=== PATIENT | female | born 1960 | race Caucasian/White ===

== ENCOUNTER 2019-06-21 06:00 | Outpatient (RCR) | payer BC, SELFPAY | END 2019-07-20 23:59 | disposition home or self-care (01) | LOC: SPT 06:00 | PROVIDERS: Family Provider Nurse Practitioner Family; PCP Nurse Practitioner Family; Visit Provider Podiatrist Foot & Ankle Surgery | DX: M77.42 Metatarsalgia, left foot (principal) | CPT/HCPCS: 97033; 97161 ==

== ENCOUNTER 2019-07-21 06:00 | Outpatient (RCR) | payer BC, SELFPAY | END 2019-08-18 23:59 | disposition home or self-care (01) | LOC: SPT 06:00 | PROVIDERS: Family Provider Nurse Practitioner Family; PCP Nurse Practitioner Family; Visit Provider Podiatrist Foot & Ankle Surgery | DX: M79.671 Pain in right foot (principal); R26.89 Other abnormalities of gait and mobility | CPT/HCPCS: 97033; 97140 ==

== ENCOUNTER 2019-08-31 16:26 | Outpatient (CLI) | payer BC, SELFPAY ==
--- NOTE | 2019-08-31 16:35 | XRR_ITS ---
PROCEDURE INFORMATION: Exam: XR Thoracic Spine, 3 Views Exam date and time: 08/31/2019 4:57 PM Age: 58 years old Clinical indication: Pain in thoracic spine; Additional info: Right side thoracic pain TECHNIQUE: Imaging protocol: XR of the thoracic spine, 3 views. COMPARISON: No relevant prior studies available. FINDINGS: Vertebrae: There are clys-yl-[id number] diffuse degenerative changes. No acute fracture or subluxation. Soft tissues: Normal. XR/XR thoracic spine 3V* [id number] IMPRESSION: 1. There are dyaz-ri-yklfcnim diffuse degenerative changes. 2. No acute bony abnormality.
--- NOTE | 2019-08-31 16:35 | XRR_ITS ---
PROCEDURE INFORMATION: Exam: XR Chest, 2 Views Exam date and time: 08/31/2019 4:57 PM Age: 58 years old Clinical indication: Shortness of breath; Right-sided chest pain; Additional info: Right upper chest pain TECHNIQUE: Imaging protocol: XR of the chest Views: 2 views. COMPARISON: No relevant prior studies available. FINDINGS: Lungs: Unremarkable. No consolidation. Pleural space: Unremarkable. No pleural effusion. No pneumothorax. Heart/Mediastinum: Unremarkable. No cardiomegaly. Bones/joints: Unremarkable. XR/XR chest 2V* [id number] IMPRESSION: No acute findings.
--- NOTE | 2019-08-31 16:35 | XRR_ITS ---
PROCEDURE INFORMATION: Exam: XR Lumbosacral Spine, 2 or 3 Views Exam date and time: 08/31/2019 4:57 PM Age: 58 years old Clinical indication: Low back pain TECHNIQUE: Imaging protocol: XR of the lumbosacral spine, 2 or 3 views. COMPARISON: No relevant prior studies available. FINDINGS: Vertebrae: There are diffuse severe facet degenerative changes. No instability with flexion or extension. No acute fracture. Normal alignment. Disc space narrowing and mild endplate degenerative changes are noted throughout the visualized lumbar spine. Soft tissues: Normal. XR/XR lumbar spine f/e only [id number] IMPRESSION: Degenerative changes. No instability.
[2019-09-01 10:28] LABS: Basophils % 0.3 %; Eosinophils # 0.1 10^3/uL (0.0-0.8); Eosinophils % 1.9 %; Hematocrit 41.6 % (37.0-47.0); Lymphocytes # 2.6 10^3/uL (0.8-4.8); Lymphocytes % 34.6 %; Mean Corpuscular HGB Conc 33.7 g/dL (30.0-36.0); Mean Corpuscular Hemoglobin 29.2 pg (28.0-34.0); Mean Corpuscular Volume 86.8 fL (81-99); Mean Platelet Volume 9.6 fL (7.4-10.4); Monocytes # 0.5 10^3/uL (0.2-0.9); Monocytes % 6.4 %; Neutrophils # 4.3 10^3/uL (1.8-7.7); Neutrophils % 56.5 %; Nucleated Red Blood Cells % 0 %; Platelet Count 329 10^3/cmm (130-400); Red Blood Count 4.79 10^6/uL (4.1-5.3); Red Cell Distribution Width 12.1 % (12.1-15.1); White Blood Count 7.5 10^3/uL (4.0-10.0)
[2019-09-01 10:40] LABS: Bilirubin Urine Neg (NEGATIVE); Blood Urine Neg (Negative); Glucose Urine UA Norm (Normal); Ketones Urine Negative (Negative); Leukocyte Esterase Urine Trace (Negative); Nitrate Urine Negative (Negative); Protein Urine Neg (Negative); Specific Gravity, Urine 1.025 (1.005-1.030); Urine Appearance Hazy (CLEAR); Urine Color Yellow (Yellow); Urobilinogen Urine Norm (Negative); pH Urine 5 (5-7)
[2019-09-01 10:43] LABS: Squamous Epithelial Cell Urine 15-25 (0-5); WBC Urine 15-25 /hpf (0-5)
[2019-09-01 10:44] LABS: Add Urine Culture? No; Bacteria Urine 2+; Estmated Average Glucose 117; Hemoglobin A1C 5.7 % (4.0-6.0); Mucus Urine 1+
[2019-09-01 10:52] LABS: Alanine Aminotransferase 17 U/L (0-33); Albumin Level 3.7 g/dL (3.5-5.2); Alkaline Phosphatase 77 IU/L (35-105); Anion Gap 12.3 (5-19); Aspartate Amino Transferase 20 U/L (0-32); Blood Urea Nitrogen 13 mg/dL (6-20); Calcium 8.9 mg/dL (8.5-10.5); Carbon Dioxide 27 mmol/L (22-29); Chloride 104 mmol/L (98-107); Cholesterol 168 mg/dL (0-200); Globulin 3.5 g/dL (1.3-4.6); Glomerular Filtration Rate 73.9 mL/min (90-130); Glucose 115 mg/dL (65-115); HDL Cholesterol 58 mg/dL (60-100); LDL Cholesterol Calculated 77 mg/dL (50-129); LDL HDL Ratio 1.33 RATIO (0.00-3.22); Osmolality Calculated 285 mOsm/kg (285-295); Potassium 4.3 mmol/L (3.5-5.1); Sodium 139 mmol/L (136-145); Total Bilirubin 0.5 mg/dL (0.15-1.2); Total Protein 7.2 g/dL (6.6-8.7); Triglycerides 164 mg/dL (0-150)
[2019-09-01 10:53] LABS: Thyroid Stimulating Hormone 2.11 uIU/mL (0.27-4.20)
[2019-09-01 11:00] LABS: 25 Hydroxy Vitamin D 9 ng/mL (30-100)
== END 2019-08-31 16:27 | disposition home or self-care (01) ==
LOC: LAB 16:30
PROVIDERS: Family Provider Nurse Practitioner Family; PCP Nurse Practitioner Family; Visit Provider Nurse Practitioner Family
DX: M47.894 Other spondylosis, thoracic region (principal); M47.896 Other spondylosis, lumbar region; M54.6 Pain in thoracic spine; R07.89 Other chest pain; R06.02 Shortness of breath; E55.9 Vitamin D deficiency, unspecified; E78.2 Mixed hyperlipidemia; R53.83 Other fatigue; I10 Essential (primary) hypertension; Z79.899 Other long term (current) drug therapy
CPT/HCPCS: 71046; 72072; 72120

== ENCOUNTER 2019-09-01 07:00 | Outpatient (CLI) | payer BC, SELFPAY | END 2019-09-01 07:01 | disposition home or self-care (01) | LOC: LAB 09-12 06:35 | PROVIDERS: Family Provider Nurse Practitioner Family; PCP Nurse Practitioner Family; Visit Provider Nurse Practitioner Family | DX: E55.9 Vitamin D deficiency, unspecified (principal); I10 Essential (primary) hypertension; M25.50 Pain in unspecified joint; R53.83 Other fatigue; M54.9 Dorsalgia, unspecified; E78.2 Mixed hyperlipidemia; Z79.899 Other long term (current) drug therapy | CPT/HCPCS: 80053; 80061; 81001; 82306; 83036; 84443; 85025 ==

== ENCOUNTER → 2019-09-03 11:51 | Outpatient (BNVA) | payer BC, SELFPAY | PROVIDERS: Family Provider Nurse Practitioner Family; PCP Nurse Practitioner Family; Visit Provider Nurse Practitioner Family | DX: M25.50 Pain in unspecified joint (principal); M54.9 Dorsalgia, unspecified; M51.36 Other intervertebral disc degeneration, lumbar region; M51.34 Other intervertebral disc degeneration, thoracic region; M54.5 Low back pain; G89.29 Other chronic pain | CPT/HCPCS: 85651; 86140; 86431 ==

== ENCOUNTER 2019-09-10 16:08 | Outpatient (CLI) | payer BC, SELFPAY | END 2019-09-10 16:09 | disposition home or self-care (01) | LOC: SPT 16:09 | PROVIDERS: Family Provider Nurse Practitioner Family; PCP Nurse Practitioner Family; Visit Provider Podiatrist Foot & Ankle Surgery | DX: M65.28 Calcific tendinitis, other site (principal) | CPT/HCPCS: L3030 ==

== ENCOUNTER → 2019-10-18 10:57 | Outpatient (BNVA) | payer BC, SELFPAY | PROVIDERS: Family Provider Nurse Practitioner Family; PCP Nurse Practitioner Family; Visit Provider Nurse Practitioner Family | DX: R60.9 Edema, unspecified (principal); M25.572 Pain in left ankle and joints of left foot | CPT/HCPCS: 73610 ==

== ENCOUNTER → 2019-10-19 00:01 | Outpatient (BNVA) | payer BC, SELFPAY | PROVIDERS: Family Provider Nurse Practitioner Family; PCP Nurse Practitioner Family; Visit Provider Nurse Practitioner Family | DX: R60.9 Edema, unspecified (principal); M25.579 Pain in unspecified ankle and joints of unspecified foot; I10 Essential (primary) hypertension; D64.9 Anemia, unspecified; M25.50 Pain in unspecified joint | CPT/HCPCS: 80053; 82607; 82746; 83540; 84550; 85025 ==

== ENCOUNTER → 2019-10-23 09:35 | Outpatient (BNVA) | payer BC, SELFPAY | PROVIDERS: Family Provider Nurse Practitioner Family; PCP Nurse Practitioner Family; Visit Provider Nurse Practitioner Family | DX: M25.579 Pain in unspecified ankle and joints of unspecified foot (principal) | CPT/HCPCS: 73610 ==

== ENCOUNTER 2019-10-25 06:00 | Outpatient (RCR) | payer BC, SELFPAY | END 2019-11-18 23:59 | disposition home or self-care (01) | LOC: WPT 06:00 | PROVIDERS: PCP Nurse Practitioner Family; Referring Provider Nurse Practitioner Family; Visit Provider Nurse Practitioner Family | DX: M65.28 Calcific tendinitis, other site (principal) | CPT/HCPCS: 97110; 97112; 97162; G0283 ==

== ENCOUNTER → 2019-12-14 11:32 | Outpatient (BNVA) | payer BC, SELFPAY | PROVIDERS: PCP Nurse Practitioner Family; Visit Provider Nurse Practitioner Family | DX: M10.9 Gout, unspecified (principal); D64.9 Anemia, unspecified; I10 Essential (primary) hypertension; M54.5 Low back pain; G89.29 Other chronic pain | CPT/HCPCS: 36415; 80053; 82607; 82746; 83921; 84550; 85025 ==

== ENCOUNTER → 2020-04-01 11:10 | Outpatient (BNVA) | payer BC, SELFPAY | PROVIDERS: PCP Nurse Practitioner Family; Visit Provider Nurse Practitioner Family | DX: M10.9 Gout, unspecified (principal); I10 Essential (primary) hypertension; E78.2 Mixed hyperlipidemia; E55.9 Vitamin D deficiency, unspecified; G62.9 Polyneuropathy, unspecified | CPT/HCPCS: 80053; 80061; 81003; 82306; 83036; 83735; 84100; 84443; 84550; 85025 ==

== ENCOUNTER → 2020-08-14 10:34 | Outpatient (BNVA) | payer OTHER, SELFPAY | PROVIDERS: PCP Nurse Practitioner Family; Visit Provider Nurse Practitioner Family | DX: S86.911A Strain of unspecified muscle(s) and tendon(s) at lower leg level, right leg, initial encounter (principal); M51.36 Other intervertebral disc degeneration, lumbar region; E55.9 Vitamin D deficiency, unspecified; M10.9 Gout, unspecified; D64.9 Anemia, unspecified; X58.XXXA Exposure to other specified factors, initial encounter | CPT/HCPCS: 73562; 80053; 81003; 82306; 82607; 83550; 84550; 85025; 85651; 86140; 87086 ==

== ENCOUNTER → 2020-08-29 12:06 | Outpatient (BNVA) | payer OTHER, SELFPAY | PROVIDERS: PCP Nurse Practitioner Family; Visit Provider Nurse Practitioner Family | DX: N39.0 Urinary tract infection, site not specified (principal) | CPT/HCPCS: 81003; 87077; 87086; 87184 ==

== ENCOUNTER → 2020-09-09 13:29 | Outpatient (BNVA) | payer OTHER, SELFPAY | PROVIDERS: PCP Nurse Practitioner Family; Visit Provider Nurse Practitioner Family | DX: N39.0 Urinary tract infection, site not specified (principal) | CPT/HCPCS: 81003 ==

== ENCOUNTER → 2020-09-10 10:21 | Outpatient (BNVA) | payer OTHER, SELFPAY | PROVIDERS: PCP Nurse Practitioner Family; Referring Provider Nurse Practitioner Family; Visit Provider Specialist | DX: M25.569 Pain in unspecified knee (principal) | CPT/HCPCS: 73560; 73565 ==

== ENCOUNTER 2020-09-10 14:20 | Outpatient (CLI) | payer OTHER, SELFPAY | END 2020-09-10 14:21 | disposition home or self-care (01) | LOC: SPT 14:21 | PROVIDERS: PCP Nurse Practitioner Family; Visit Provider Specialist | DX: M25.561 Pain in right knee (principal); Z46.89 Encounter for fitting and adjustment of other specified devices | CPT/HCPCS: 97760; L1812 ==

== ENCOUNTER → 2021-12-15 10:37 | Outpatient (BNVA) | payer BC, MEDICARE, SELFPAY | PROVIDERS: PCP Nurse Practitioner Family; Visit Provider Nurse Practitioner | DX: I10 Essential (primary) hypertension (principal); E55.9 Vitamin D deficiency, unspecified; M25.50 Pain in unspecified joint; M17.10 Unilateral primary osteoarthritis, unspecified knee | CPT/HCPCS: 80053; 80061; 82306; 84443; 85025 ==

== ENCOUNTER 2023-05-05 10:08 | Outpatient (CLI) | payer MEDICARE, SELFPAY ==
--- NOTE | 2023-05-05 10:30 | MM_ITS ---
WS: [id number] BILATERAL SCREENING DIGITAL TOMOSYNTHESIS MAMMOGRAM WITH CAD HISTORY: Z12.39 - Encounter for other screening for malignant neop... COMPARISON: None available. Bilateral CC and MLO views with tomosynthesis and synthetic mammography submitted. Computer aided det ection analyzed. Breast composition: The breasts are heterogeneously dense, which may obscure small masses. No suspici ous masses, microcalcifications or architectural distortion. IMPRESSION: MM/[place] [id number] BI-RADS: 2-Benign FOLLOW UP: 1 Year Follow-up
== END 2023-05-05 10:09 | disposition home or self-care (01) ==
LOC: MOBLMAM 10:12
PROVIDERS: PCP Nurse Practitioner Family; Visit Provider Nurse Practitioner Family
DX: Z12.31 Encounter for screening mammogram for malignant neoplasm of breast (principal)
CPT/HCPCS: 77063; 77067

== ENCOUNTER → 2023-08-08 10:18 | Outpatient (BNVA) | payer MEDICARE, SELFPAY | PROVIDERS: PCP Nurse Practitioner Family; Visit Provider Nurse Practitioner Family | DX: I10 Essential (primary) hypertension (principal); M79.7 Fibromyalgia | CPT/HCPCS: 80053; 84443; 85025; 86140 ==

== ENCOUNTER → 2023-11-22 10:03 | Outpatient (BNVA) | payer MEDICARE, SELFPAY | PROVIDERS: PCP Nurse Practitioner Family; Visit Provider Nurse Practitioner Family | DX: B02.9 Zoster without complications (principal); L03.90 Cellulitis, unspecified; E55.9 Vitamin D deficiency, unspecified; I10 Essential (primary) hypertension; E78.2 Mixed hyperlipidemia; Z79.899 Other long term (current) drug therapy; M79.7 Fibromyalgia; G62.9 Polyneuropathy, unspecified | CPT/HCPCS: 80053; 82306; 83036; 85025 ==

== ENCOUNTER → 2024-03-15 08:51 | Outpatient (BNVA) | payer MEDICARE, SELFPAY | PROVIDERS: PCP Nurse Practitioner Family; Visit Provider Nurse Practitioner Family | DX: I10 Essential (primary) hypertension (principal); E55.9 Vitamin D deficiency, unspecified; E78.2 Mixed hyperlipidemia; R73.09 Other abnormal glucose; E11.9 Type 2 diabetes mellitus without complications; M25.872 Other specified joint disorders, left ankle and foot; M92.60 Juvenile osteochondrosis of tarsus, unspecified ankle; M25.871 Other specified joint disorders, right ankle and foot; M67.971 Unspecified disorder of synovium and tendon, right ankle and foot; M92.62 Juvenile osteochondrosis of tarsus, left ankle; M77.8 Other enthesopathies, not elsewhere classified | CPT/HCPCS: 73610; 73630; 80053; 80061; 81003; 82306; 83036; 85025; 87086 ==

== ENCOUNTER 2024-09-19 13:46 | Outpatient (CLI) | payer MEDICARE, SELFPAY | END 2024-09-19 13:47 | disposition home or self-care (01) | LOC: SPT 13:47 | PROVIDERS: PCP Nurse Practitioner Family; Visit Provider Podiatrist Foot & Ankle Surgery | DX: Z46.89 Encounter for fitting and adjustment of other specified devices (principal); M72.2 Plantar fascial fibromatosis; M77.51 Other enthesopathy of right foot and ankle; M77.52 Other enthesopathy of left foot and ankle | CPT/HCPCS: L4397 ==

== ENCOUNTER 2024-10-05 09:07 | Outpatient (RCR) | payer MEDICARE, SELFPAY | END 2024-10-17 23:59 | disposition home or self-care (01) | LOC: SPT 09:07 | PROVIDERS: PCP Nurse Practitioner Family; Visit Provider Podiatrist Foot & Ankle Surgery | DX: M76.62 Achilles tendinitis, left leg (principal); M76.61 Achilles tendinitis, right leg | CPT/HCPCS: 97161 ==

== ENCOUNTER 2024-10-18 05:00 | Outpatient (RCR) | payer MEDICARE, SELFPAY | END 2024-11-13 09:58 | disposition home or self-care (01) | LOC: SPT 05:00 | PROVIDERS: PCP Nurse Practitioner Family; Visit Provider Podiatrist Foot & Ankle Surgery | DX: M76.62 Achilles tendinitis, left leg (principal); M76.61 Achilles tendinitis, right leg | CPT/HCPCS: 97033; 97110; 97140 ==

== ENCOUNTER 2024-11-01 09:50 | Outpatient (CLI) | payer MEDICARE, SELFPAY | END 2024-11-01 09:51 | disposition home or self-care (01) | LOC: SPT 09:51 | PROVIDERS: PCP Nurse Practitioner Family; Visit Provider Podiatrist Foot & Ankle Surgery | DX: Z46.89 Encounter for fitting and adjustment of other specified devices (principal); M72.2 Plantar fascial fibromatosis | CPT/HCPCS: L4361 ==

== ENCOUNTER → 2024-12-18 08:00 | Outpatient (BNVA) | payer MEDICARE, SELFPAY | PROVIDERS: PCP Nurse Practitioner Family; Visit Provider Podiatrist Foot & Ankle Surgery | DX: M76.61 Achilles tendinitis, right leg (principal); M76.62 Achilles tendinitis, left leg; M72.2 Plantar fascial fibromatosis; M77.51 Other enthesopathy of right foot and ankle; M77.52 Other enthesopathy of left foot and ankle | CPT/HCPCS: 99214 ==

== ENCOUNTER → 2024-12-24 10:00 | Outpatient (BNVA) | payer MEDICARE, SELFPAY | PROVIDERS: PCP Nurse Practitioner Family; Visit Provider Nurse Practitioner Family | DX: E11.9 Type 2 diabetes mellitus without complications (principal); E55.9 Vitamin D deficiency, unspecified; M25.50 Pain in unspecified joint; M10.9 Gout, unspecified | CPT/HCPCS: 80053; 80061; 81003; 82306; 83036; 84443; 84550; 85025; 85651; 86038; 86140; 86200; 86431; 87077; 87086; 87184 ==

== ENCOUNTER 2025-01-21 07:18 | Outpatient (RCR) | payer MEDICARE, SELFPAY | END 2025-02-14 09:10 | disposition home or self-care (01) | LOC: SPT 07:18 | PROVIDERS: PCP Nurse Practitioner Family; Visit Provider Podiatrist Foot & Ankle Surgery | DX: M76.61 Achilles tendinitis, right leg (principal); M76.62 Achilles tendinitis, left leg | CPT/HCPCS: 97035; 97140; 97162 ==

== ENCOUNTER 2025-02-27 10:54 | Outpatient (CLI) | payer MEDICARE, SELFPAY ==
--- NOTE | 2025-02-27 11:00 | MM_ITS ---
WS: [id number] BILATERAL 3D TOMOSYNTHESIS DIGITAL SCREENING MAMMOGRAPHY WITH CAD CLINICAL INFORMATION: Z12.39 - Encounter for other screening for malignant neop... HISTORY: Screening mammogram. No current complaints. COMPARISON: 2022 TECHNIQUE: Bilateral CC and MLO views. FINDINGS: The breasts are composed of heterogeneous fibroglandular density tissue, which can limit the detection of small underlying mass lesions.Vascular calcification. Punctate and lucent centered calcifications. New asymmetric density lower outer LEFT breast measuring 7 mm only well seen on the MLO view. Recommend further evaluation with LEFT breast diagnostic mammography and ultrasound if persistent. Unremarkable RIGHT breast. MM/MM [place] tomosynthesis [id number] IMPRESSION: DENSITY: The breasts are heterogeneously dense, which may obscure small masses. BI-RADS: 0 - Incomplete: Need additional imaging evaluation. FOLLOW UP: Need Additional Imaging Recommend further evaluation with LEFT breast diagnostic mammography and ultras ound if persistent.
== END 2025-02-27 10:55 | disposition home or self-care (01) ==
LOC: MOBLMAM 10:56
PROVIDERS: PCP Nurse Practitioner Family; Visit Provider Nurse Practitioner Family
DX: Z12.31 Encounter for screening mammogram for malignant neoplasm of breast (principal); R92.333 Mammographic heterogeneous density, bilateral breasts
CPT/HCPCS: 77063; 77067

== ENCOUNTER 2025-03-14 11:42 | Outpatient (CLI) | payer MEDICARE, SELFPAY ==
--- NOTE | 2025-03-14 12:45 | MM_ITS ---
WS: [id number] LEFT 3D TOMOSYNTHESIS DIGITAL MAMMOGRAPHY WITH CAD CLINICAL INFORMATION: R92.8 - Other abnormal and inconclusive findings on diagn... HISTORY: Additional views COMPARISON: 2024 TECHNIQUE: 3 views of the left breast were obtained. FINDINGS: The left breast is composed of heterogeneous fibroglandular density tissue, which can limit the detection of small underlying mass lesions. Previously described asymmetric density LEFT breast compresses out today on the spot compression views. No residual suspicious abnormalities. Recommend return to a nnual screening mammography. MM/MM diag [place] tomosynthesis [id number] IMPRESSION: DENSITY: The breasts are heterogeneously dense, which may obscure small masses. BI-RADS: 1 - Negative FOLLOW UP: 1 Year Follow-up Recommend return to annual screening mammography.
== END 2025-03-14 11:43 | disposition home or self-care (01) ==
PROVIDERS: PCP Nurse Practitioner Family; Visit Provider Nurse Practitioner Family
DX: R92.8 Other abnormal and inconclusive findings on diagnostic imaging of breast (principal)
CPT/HCPCS: 77061; G0279

== ENCOUNTER → 2025-04-10 10:58 | Outpatient (BNVA) | payer MEDICARE, SELFPAY | PROVIDERS: PCP Nurse Practitioner Family; Visit Provider Podiatrist Foot & Ankle Surgery | DX: M72.2 Plantar fascial fibromatosis (principal); M77.51 Other enthesopathy of right foot and ankle; M77.52 Other enthesopathy of left foot and ankle; M76.61 Achilles tendinitis, right leg; M76.62 Achilles tendinitis, left leg | CPT/HCPCS: 99214 ==

== ENCOUNTER → 2025-05-20 13:54 | Outpatient (BNVA) | payer MEDICARE, SELFPAY | PROVIDERS: PCP Nurse Practitioner Family; Visit Provider Podiatrist Foot & Ankle Surgery | DX: M72.2 Plantar fascial fibromatosis (principal); M77.51 Other enthesopathy of right foot and ankle; M77.52 Other enthesopathy of left foot and ankle; M76.61 Achilles tendinitis, right leg; M76.62 Achilles tendinitis, left leg | CPT/HCPCS: 99214 ==